=== PATIENT | female | born 1985 | race Caucasian/White ===

== ENCOUNTER 2024-11-23 07:58 | Day surgery (SDC) | payer BC ==
[2024-11-23] MEDS ORDERED: Sodium Chloride 0.9% 10 ML Syringe FLUSH PRN (08:26)
[2024-11-23 08:32] LABS: BASOPHILS ABSOLUTE AUTO 0.05 K/uL (0.00-0.20); BASOPHILS PERCENT AUTO 0.6 % (0.0-1.0); EOSINOPHILS ABSOLUTE AUTO 0.54 K/uL (0.00-0.45); EOSINOPHILS PERCENT AUTO 6.6 % (0.0-6.0); HEMATOCRIT 39.4 % (37.0-47.0); HEMOGLOBIN 13.9 g/dL (12.0-16.0); IMMATURE GRAN ABSOLUTE AUTO 0.02 K/uL (0.00-0.05); IMMATURE GRAN PERCENT AUTO 0.2 % (0.0-0.4); LYMPHOCYTES ABSOLUTE AUTO 1.46 K/uL (1.00-4.80); LYMPHOCYTES PERCENT AUTO 17.9 % (24.0-44.0); MEAN CORPUSCULAR HEMOGLOBIN 32.5 pg (28.0-32.0); MEAN CORPUSCULAR HGB CONC 35.3 g/dL (32.0-36.0); MEAN CORPUSCULAR VOLUME 92.1 fL (83.0-99.0); MEAN PLATELET VOLUME 10.9 fL (9.4-12.3); MONOCYTES ABSOLUTE AUTO 0.68 K/uL (0.00-0.80); MONOCYTES PERCENT AUTO 8.3 % (0.0-8.0); NEUTROPHILS ABSOLUTE AUTO 5.41 K/uL (1.80-7.70); NEUTROPHILS PERCENT AUTO 66.4 % (41.0-71.0); PLATELET COUNT,PLT 237 K/uL (150-400); RED BLOOD CELL COUNT 4.28 M/uL (4.10-5.30); WHITE BLOOD CELL COUNT,WBC 8.16 K/uL (3.9-11.3)
[2024-11-23] MEDS: Ketorolac 30 MG/ML SDV IVPUSH ONE (08:33)
[2024-11-23 08:41] LABS: A/G RATIO 1.4 (0.9-1.6); ALBUMIN 4.2 g/dL (3.4-5.0); CALCIUM 8.9 mg/dL (8.5-10.1); CARBON DIOXIDE,CO2 23.8 mmol/L (21.0-32.0); EST CRCL DRUG DOSING (CG) 74.18 mL/min; MAGNESIUM 2.1 mg/dL (1.8-2.4); POTASSIUM,K 4.1 mmol/L (3.5-5.1); PROTEIN TOTAL,TP 7.3 g/dL (6.4-8.2)
[2024-11-23 08:41] LABS: APPEARANCE,URINE CLEAR; COLOR,URINE YELLOW; GLUCOSE,URINE NEGATIVE (NEGATIVE); KETONES,URINE 15 mg/dL (NEGATIVE); LEUKOCYTE ESTERASE,URINE NEGATIVE (NEGATIVE); NITRITE,URINE NEGATIVE (NEGATIVE); OCCULT BLOOD,URINE NEGATIVE (NEGATIVE); PROTEIN,URINE NEGATIVE (NEGATIVE)
[2024-11-23 08:55] LABS: BILIRUBIN,URINE SMALL (NEGATIVE)
[2024-11-23] MEDS: Iopamidol 755 MG/ML 500 ML Multipack Bottle IVPUSH STA (10:00)
[2024-11-23] MEDS ORDERED: HYDROmorphone 2 MG/ML Syringe IVPUSH PRN (11:20)
[2024-11-23] MEDS ORDERED: Lactated Ringers 1,000 ML IV SCH (11:30)
[2024-11-23 11:31] LABS: INR 0.98 (0.86-1.11)
[2024-11-23] MEDS: Sodium Chloride 0.9% 1,000 ML IV SCH (11:32)
[2024-11-23] MEDS: Ciprofloxacin in D5W 400 MG in Premix Bag 1 BAG IV SCH (11:32)
[2024-11-23] MEDS: metroNIDAZOLE/Normal Saline 500 MG in Premix Bag 1 BAG IV ONE (11:32)
[2024-11-23] MEDS ORDERED: HYDROmorphone 0.5 MG/0.5 ML Syringe IVPUSH PRN (11:33)
[2024-11-23] MEDS ORDERED: fentaNYL 100 MCG/2 ML SDV ONE (11:54)
[2024-11-23] MEDS ORDERED: Ketorolac 30 MG/ML SDV ONE (11:54)
[2024-11-23] MEDS ORDERED: Rocuronium Bromide 50 MG/5 ML Syringe ONE (11:54)
[2024-11-23] MEDS ORDERED: Dexamethasone 4 MG/ML 5 ML MDV ONE (11:54)
[2024-11-23] MEDS ORDERED: Ondansetron 4 MG/2 ML SDV ONE (11:54)
[2024-11-23] MEDS ORDERED: Propofol 200 MG/20 ML SDV ONE (11:54)
[2024-11-23] MEDS ORDERED: Midazolam 1 MG/ML 2 ML SDV ONE (11:55)
[2024-11-23] MEDS ORDERED: Lidocaine 2% 5 ML SDV ONE (11:55)
[2024-11-23] MEDS ORDERED: Ropivacaine 0.5% 5 MG/ML 30 ML SDV ONE (11:55)
[2024-11-23] MEDS ORDERED: Sugammadex Sodium 200 MG/2 ML VIAL IV ONE (11:55)
[2024-11-23] MEDS ORDERED: Bupivacaine 0.5% 30 ML SDV ONE (12:05)
== END 2024-11-23 15:50 | disposition home or self-care (01) ==
LOC: MW.ED 07:58 → MW.SDS 11:58
PROVIDERS: ATTEND Surgery
DX: K35.33 Acute appendicitis with perforation, localized peritonitis, and gangrene, with abscess (principal); E03.9 Hypothyroidism, unspecified; Z79.890 Hormone replacement therapy; Z79.899 Other long term (current) drug therapy; Z88.0 Allergy status to penicillin
CPT/HCPCS: 36415; 44970; 64488; 71045; 74177; 76705; 80053; 81003; 81025; 83690; 83735; 85025; 85610; 96374; 96375; 99285; J0665; J0744; J1100; J1836; J1885; J2003; J2250; J2405; J2704; J2795; J3010; J7030; Q9967; 00840; 64486; 99284; J3490